=== PATIENT | female | born 1965 | race African-American/Black ===

== ENCOUNTER 2019-11-06 09:26 | Inpatient (IN) | payer MEDICARE, MEDICAID ==
[~2019-11-06] VITALS: Ht 167.6 cm; Wt 86.2 kg
[2019-11-06] MEDS ORDERED: METHYLPREDNISOLONE SOD SUCC 125 MG/2 ML VIAL IV STA (09:44)
[2019-11-06] MEDS ORDERED: IPRATROPIUM BROMIDE (0.02%) 0.5MG/2.5ML NEB HHN STA (09:44)
[2019-11-06] MEDS ORDERED: ALBUTEROL (0.083%) 2.5MG/3ML NEB HHN STA (09:44)
[2019-11-06] MEDS ORDERED: IPRATROPIUM/ALBUTEROL 0.5-3(2.5)MG/3ML NEB ONE (09:47)
[2019-11-06] MEDS ORDERED: SODIUM CHLORIDE 0.9% 1000ML BAG (SEPSIS BOLUS) IV ONE (10:30)
[2019-11-06] MEDS ORDERED: LEVOFLOXACIN 500MG PREMIX 100 ML IV ONE (10:30)
[2019-11-06] MEDS ORDERED: PIPERACILLIN/TAZ 3.375G PREMIX 50 ML IV ONE (10:30)
[2019-11-06] MEDS ORDERED: VECURONIUM BROMIDE 10 MG/VIAL IV ONE ×2 (10:31→11:45)
[2019-11-06] MEDS ORDERED: ETOMIDATE 2MG/ML 10ML VIAL IV ONE ×2 (10:31→11:00)
[2019-11-06 10:46] LABS: CHLORIDE 97 mEq/L (98-107)
[2019-11-06 10:48] LABS: INR 1.1; PROTHROMBIN TIME 12.1 sec (9.6-11.0)
[2019-11-06] MEDS ORDERED: LORAZEPAM 2MG/ML CPJ ONE (10:55)
[2019-11-06] MEDS ORDERED: LORAZEPAM 2MG/ML CPJ IV ONE (11:00)
[2019-11-06] MEDS ORDERED: MIDAZOLAM HCL 50 MG in DEXTROSE 5% WATER 40 ML IV ONE (11:00)
[2019-11-06 11:20] LABS: CLARITY URINE TURBID (CLEAR); COLOR URINE DK YELLOW (YELLOW); KETONES URINE NEGATIVE (NEGATIVE); LEUKOCYTE ESTERASE URINE 3+ (NEGATIVE); NITRITE URINE NEGATIVE (NEGATIVE); OCCULT BLOOD URINE NEGATIVE (NEGATIVE); PH URINE 8.5 (4.5-8.0); PROTEIN URINE 2+ (NEGATIVE); SPECIFIC GRAVITY URINE 1.017 (1.005-1.030)
[2019-11-06 11:29] LABS: BG CARBOXYHEMOGLOBIN 0.8 % (0.5-1.5); BG DEOXYHEMOGLOBIN 0.3 % (0.0-5.0); BG FRACTION INSPIRED OXYGEN 100; BG HCO3 ACT 21.8 mmol/L (22.0-26.0); BG METHEMOGLOBIN 0.5 % (0.0-1.5); BG OXYGEN SATURATION 99.7 % (92.0-98.5); BG OXYHEMOGLOBIN 98.4 % (94.0-97.0); BG PCO2 28.3 mmHg (35.0-45.0); BG PH 7.504 (7.350-7.450); BG SAMPLE SITE RIGHT BRACHIAL; BG TIDAL VOLUME(mL) 500 mL; BG TOTAL HEMOGLOBIN 7.2 g/dL (12.0-18.0); BG VENT MODE VENT - A/C; BG VENT RATE 12 set
[2019-11-06 12:38] LABS: BASOPHILS % 1.2 % (0.0-2.0); EOSINOPHILS % 0.8 % (0.0-5.0); HEMATOCRIT. 24.6 % (36.0-48.0); HEMOGLOBIN. 7.5 g/dL (12.0-16.0); LYMPHOCYTES % 11.5 % (20.0-50.0); MEAN CORPUSCULAR HEMOGLOBIN 27.7 pg (28.0-32.0); MEAN CORPUSCULAR VOLUME 90.2 fL (81.0-99.0); MEAN PLATELET VOLUME 8.2 fl (7.4-10.4); MONOCYTES % 10.2 % (2.0-8.0); NEUTROPHILS % 76.3 % (40.0-76.0); PLATELET 83 x1000/uL (130-400); RED BLOOD CELL COUNT 2.73 mill/uL (4.2-5.4); RED CELL DISTRIBUTION WIDTH 19.4 % (11.6-14.6)
[2019-11-06] MEDS ORDERED: PIPERACILLIN/TAZ 3.375G PREMIX 50 ML IV SCH (15:45)
[2019-11-06] MEDS ORDERED: ACETAMINOPHEN 325MG TABLET PO PRN (15:45)
[2019-11-06] MEDS ORDERED: ONDANSETRON HCL 4MG/2ML INJ IV PRN (15:45)
[2019-11-06 16:13] LABS: BG BASE EXCESS 0.1 mmol/L (-2.0-2.0); BG CARBOXYHEMOGLOBIN 1.1 % (0.5-1.5); BG DEOXYHEMOGLOBIN 0.4 % (0.0-5.0); BG FRACTION INSPIRED OXYGEN 40; BG HCO3 ACT 22.5 mmol/L (22.0-26.0); BG METHEMOGLOBIN 0.5 % (0.0-1.5); BG OXYGEN SATURATION 99.6 % (92.0-98.5); BG PCO2 27.7 mmHg (35.0-45.0); BG PH 7.527 (7.350-7.450); BG PO2 164.4 mmHg (75.0-100.0); BG SAMPLE SITE RIGHT RADIAL; BG TIDAL VOLUME(mL) 500 mL; BG VENT MODE VENT - A/C; BG VENT RATE 12 set
[2019-11-06] MEDS: PANTOPRAZOLE SODIUM 40 MG/VIAL IV SCH (16:50)
[2019-11-06] MEDS: SODIUM CHLORIDE 0.9% 1,000 ML IV SCH (16:51)
[2019-11-06] MEDS ORDERED: MIDAZOLAM HCL 50 MG in DEXTROSE 5% WATER 40 ML IV PRN (21:15)
[2019-11-06] MEDS ORDERED: METHYLPREDNISOLONE SOD SUCC 125 MG/2 ML VIAL IV NR (22:15)
[2019-11-06] MEDS ORDERED: METHYLPREDNISOLONE SOD SUCC 40 MG/ML VIAL IV NR (22:15)
[2019-11-07] VITALS (48 sets, daily range): BP systolic 109–148; BP diastolic 56–80
[2019-11-07] MEDS ORDERED: VANCOMYCIN 1500MG in DEXTROSE 5% WATER 250ML IV SCH (01:00)
[2019-11-07 01:57] LABS: HEMATOCRIT. 21.8 % (36.0-48.0); MEAN CORPUSCULAR HEMOGLOBIN 27.6 pg (28.0-32.0); MEAN CORPUSCULAR VOLUME 87.2 fL (81.0-99.0); RED CELL DISTRIBUTION WIDTH 19.5 % (11.6-14.6)
[2019-11-07 02:05] LABS: HEMOGLOBIN. 6.9 g/dL (12.0-16.0)
[2019-11-07 02:32] LABS: CHLORIDE 101 mEq/L (98-107)
[2019-11-07] MEDS: SODIUM CHLORIDE 0.9% 1,000 ML IV SCH ×3 (02:48→15:24)
[2019-11-07 03:56] LABS: NUCLEATED RED BLOOD CELLS 1 /100 WBC
[2019-11-07 03:57] LABS: PLATELET ESTIMATE DECREASED
[2019-11-07 04:01] LABS: PLATELET 86 x1000/uL (130-400)
[2019-11-07 04:02] LABS: MEAN PLATELET VOLUME 8.9 fl (7.4-10.4)
[2019-11-07 06:47] LABS: HEMATOCRIT. 25.3 % (36.0-48.0); HEMOGLOBIN. 8.4 g/dL (12.0-16.0); MEAN CORPUSCULAR HEMOGLOBIN 28.7 pg (28.0-32.0); MEAN CORPUSCULAR VOLUME 86.9 fL (81.0-99.0); MEAN PLATELET VOLUME 8.3 fl (7.4-10.4); PLATELET 81 x1000/uL (130-400); RED BLOOD CELL COUNT 2.91 mill/uL (4.2-5.4); RED CELL DISTRIBUTION WIDTH 18.7 % (11.6-14.6)
[2019-11-07] MEDS: METHYLPREDNISOLONE SOD SUCC 40 MG/ML VIAL IV SCH ×3 (06:55→23:01)
[2019-11-07 08:00] LABS: BG BASE EXCESS -0.1 mmol/L (-2.0-2.0); BG DEOXYHEMOGLOBIN 0.6 % (0.0-5.0); BG FRACTION INSPIRED OXYGEN 40; BG HCO3 ACT 21.1 mmol/L (22.0-26.0); BG METHEMOGLOBIN 0.4 % (0.0-1.5); BG OXYGEN SATURATION 99.4 % (92.0-98.5); BG PCO2 23.2 mmHg (35.0-45.0); BG PH 7.576 (7.350-7.450); BG PO2 157.7 mmHg (75.0-100.0); BG SAMPLE SITE RIGHT BRACHIAL; BG TIDAL VOLUME(mL) 500 mL; BG TOTAL HEMOGLOBIN 8.9 g/dL (12.0-18.0); BG VENT MODE VENT - A/C; BG VENT RATE 12 set
[2019-11-07 08:09] LABS: PLATELET ESTIMATE SLIGHTLY DECREASED
[2019-11-07] MEDS: IPRATROPIUM/ALBUTEROL 0.5-3(2.5)MG/3ML NEB HHN SCH ×4 (08:43→20:28)
[2019-11-07] MEDS ORDERED: HEPARIN 100 UNITS/1 ML VIAL IVF PRN (10:45)
[2019-11-07] MEDS ORDERED: PIPERACILLIN/TAZOBACTAM 2.25 G in DEXTROSE 5% WATER 50 ML IV SCH ×3 (11:00)
[2019-11-07] MEDS ORDERED: ATOR-2 MT (11:17)
[2019-11-07] MEDS ORDERED: TRAM50TA3 MT (11:19)
[2019-11-07] MEDS ORDERED: TRAM50TA MT (11:19)
[2019-11-07] MEDS ORDERED: PHEN30TA42 PO (11:22)
[2019-11-07] MEDS ORDERED: BACL-141 PO (11:25)
[2019-11-07] MEDS ORDERED: AMAN100C16 GT (11:29)
[2019-11-07] MEDS ORDERED: SENN-178 MT (11:31)
[2019-11-07] MEDS ORDERED: HYOS-16 SL (11:34)
[2019-11-07] MEDS ORDERED: LEVE10006 MT (11:35)
[2019-11-07] MEDS ORDERED: AMLO5TAB88 MT (11:52)
[2019-11-07] MEDS ORDERED: METO-385 PO (11:54)
[2019-11-07] MEDS ORDERED: ONDA4TAB11 PO (11:57)
[2019-11-07] MEDS ORDERED: LORA2DIS6 SQ (12:20)
[2019-11-07] MEDS ORDERED: HYDR12.54 MT (12:22)
[2019-11-07] MEDS ORDERED: SERT100T (12:24)
[2019-11-07] MEDS ORDERED: VITA-261 MT (12:25)
[2019-11-07] MEDS: PANTOPRAZOLE SODIUM 40 MG/VIAL IV SCH (12:41)
[2019-11-07] MEDS ORDERED: DEXT 5%/0.9% NACL 1,000 ML IV SCH (12:45)
[2019-11-07] MEDS ORDERED: LIDOCAINE HCL 1% 20ML VIAL (Pyxis) INJ ONE (13:21)
[2019-11-07 14:10] LABS: BG BASE EXCESS -4.5 mmol/L (-2.0-2.0); BG CARBOXYHEMOGLOBIN 0.8 % (0.5-1.5); BG DEOXYHEMOGLOBIN 0.9 % (0.0-5.0); BG FRACTION INSPIRED OXYGEN 40; BG HCO3 ACT 17.9 mmol/L (22.0-26.0); BG METHEMOGLOBIN 0.4 % (0.0-1.5); BG OXYGEN SATURATION 99.1 % (92.0-98.5); BG OXYHEMOGLOBIN 97.9 % (94.0-97.0); BG PO2 149.7 mmHg (75.0-100.0); BG PRESSURE SUPPORT 10; BG SAMPLE SITE RIGHT RADIAL; BG TIDAL VOLUME(mL) 500 mL; BG TOTAL HEMOGLOBIN 8.8 g/dL (12.0-18.0); BG VENT MODE VENT - SIMV; BG VENT RATE 12 set
[2019-11-07] MEDS: CEFEPIME 2,000 MG in DEXT 5% WATER 100 ML IV SCH (17:27)
[2019-11-07] MEDS: MIDAZOLAM HCL 50 MG in DEXTROSE 5% WATER 40 ML IV PRN (18:31)
[2019-11-07] MEDS ORDERED: LEVETIRACETAM 500MG/5ML CUP PO SCH (21:00)
[2019-11-07] MEDS: VANCOMYCIN 1 G PREMIX 200 ML IV SCH (21:23)
[2019-11-07] MEDS: LEVETIRACETAM 1,500 MG in SODIUM CHLORIDE 0.9% 100 ML IV SCH (23:01)
[2019-11-07 23:30] LABS: T4 FREE 0.8 ng/dL (0.76-1.46)
[2019-11-08] VITALS (96 sets, daily range): BP systolic 72–136; BP diastolic 36–92
[2019-11-08] MEDS: IPRATROPIUM/ALBUTEROL 0.5-3(2.5)MG/3ML NEB HHN SCH ×7 (00:25→20:40)
[2019-11-08] MEDS ORDERED: VANCOMYCIN 1250MG in DEXTROSE 5% WATER 250ML IV SCH (01:00)
[2019-11-08] MEDS: MIDAZOLAM HCL 50 MG in DEXTROSE 5% WATER 40 ML IV PRN ×3 (05:16→19:54)
[2019-11-08] MEDS: SODIUM CHLORIDE 0.9% 1,000 ML IV SCH ×3 (05:17→13:04)
[2019-11-08] MEDS: METHYLPREDNISOLONE SOD SUCC 40 MG/ML VIAL IV SCH ×3 (05:18→21:41)
[2019-11-08 05:47] LABS: HEMATOCRIT. 25.3 % (36.0-48.0); HEMOGLOBIN. 8.4 g/dL (12.0-16.0); MEAN CORPUSCULAR HEMOGLOBIN 28.9 pg (28.0-32.0); MEAN CORPUSCULAR VOLUME 87.3 fL (81.0-99.0); MEAN PLATELET VOLUME 7.3 fl (7.4-10.4); PLATELET 52 x1000/uL (130-400); RED CELL DISTRIBUTION WIDTH 19.3 % (11.6-14.6)
[2019-11-08 06:03] LABS: PHOSPHORUS 4.3 mg/dL (2.5-4.9)
[2019-11-08 07:33] LABS: BG BASE EXCESS -3.5 mmol/L (-2.0-2.0); BG CARBOXYHEMOGLOBIN 1.1 % (0.5-1.5); BG DEOXYHEMOGLOBIN 0.8 % (0.0-5.0); BG FRACTION INSPIRED OXYGEN 10; BG HCO3 ACT 20.2 mmol/L (22.0-26.0); BG METHEMOGLOBIN 0.3 % (0.0-1.5); BG OXYGEN SATURATION 99.2 % (92.0-98.5); BG OXYHEMOGLOBIN 97.8 % (94.0-97.0); BG PCO2 30.7 mmHg (35.0-45.0); BG PH 7.435 (7.350-7.450); BG PO2 157.8 mmHg (75.0-100.0); BG PRESSURE SUPPORT 10; BG SAMPLE SITE RIGHT RADIAL; BG TIDAL VOLUME(mL) 500 mL; BG TOTAL HEMOGLOBIN 8.8 g/dL (12.0-18.0); BG VENT MODE VENT - SIMV; BG VENT RATE 12 set
[2019-11-08] MEDS: PANTOPRAZOLE SODIUM 40 MG/VIAL IV SCH (09:16)
[2019-11-08] MEDS: LEVETIRACETAM 1,500 MG in SODIUM CHLORIDE 0.9% 100 ML IV SCH ×2 (09:16→20:44)
[2019-11-08] MEDS ORDERED: POTASSIUM CHLORIDE INJ 40 MEQ in DEXT 5% WATER 250 ML IV ONE (10:30)
[2019-11-08 16:54] LABS: PLATELET ESTIMATE DECREASED
[2019-11-08] MEDS: CEFEPIME 2,000 MG in DEXT 5% WATER 100 ML IV SCH (18:01)
[2019-11-08] MEDS: VANCOMYCIN 1 G PREMIX 200 ML IV SCH (21:41)
[2019-11-09] VITALS (47 sets, daily range): BP systolic 46–135; BP diastolic 18–90
[2019-11-09] MEDS: SODIUM CHLORIDE 0.9% 1,000 ML IV SCH ×2 (00:43→09:02)
[2019-11-09] MEDS ORDERED: NOREPINEPHRINE 8 MG in DEXT 5% WATER 242 ML IV PRN (04:00)
[2019-11-09] MEDS: METHYLPREDNISOLONE SOD SUCC 40 MG/ML VIAL IV SCH (06:34)
[2019-11-09] MEDS: MIDAZOLAM HCL 50 MG in DEXTROSE 5% WATER 40 ML IV PRN (07:35)
[2019-11-09] MEDS: IPRATROPIUM/ALBUTEROL 0.5-3(2.5)MG/3ML NEB HHN SCH ×2 (08:34→11:25)
[2019-11-09 08:49] LABS: BG BASE EXCESS -14.5 mmol/L (-2.0-2.0); BG CARBOXYHEMOGLOBIN 0.9 % (0.5-1.5); BG DEOXYHEMOGLOBIN 0.8 % (0.0-5.0); BG FRACTION INSPIRED OXYGEN 40; BG HCO3 ACT 8.7 mmol/L (22.0-26.0); BG METHEMOGLOBIN 0.4 % (0.0-1.5); BG OXYGEN SATURATION 99.2 % (92.0-98.5); BG OXYHEMOGLOBIN 97.9 % (94.0-97.0); BG PCO2 15.7 mmHg (35.0-45.0); BG PH 7.361 (7.350-7.450); BG PO2 155.8 mmHg (75.0-100.0); BG SAMPLE SITE RIGHT RADIAL; BG TIDAL VOLUME(mL) 500 mL; BG TOTAL HEMOGLOBIN 10.5 g/dL (12.0-18.0); BG VENT MODE VENT - A/C; BG VENT RATE 12 set
[2019-11-09] MEDS: PANTOPRAZOLE SODIUM 40 MG/VIAL IV SCH (09:03)
[2019-11-09] MEDS: LEVETIRACETAM 1,500 MG in SODIUM CHLORIDE 0.9% 100 ML IV SCH (09:03)
[2019-11-09 10:38] LABS: HEMATOCRIT. 31.9 % (36.0-48.0); HEMOGLOBIN. 9.2 g/dL (12.0-16.0); MEAN CORPUSCULAR HEMOGLOBIN 27.4 pg (28.0-32.0); MEAN CORPUSCULAR VOLUME 95.3 fL (81.0-99.0); RED BLOOD CELL COUNT 3.35 mill/uL (4.2-5.4); RED CELL DISTRIBUTION WIDTH 21.1 % (11.6-14.6)
[2019-11-09 12:02] LABS: MEAN PLATELET VOLUME 8.6 fl (7.4-10.4); PLATELET 10 x1000/uL (130-400)
[2019-11-09 12:05] LABS: NUCLEATED RED BLOOD CELLS 14 /100 WBC; PLATELET ESTIMATE MARKEDLY DECREASED
[2019-11-09] MEDS ORDERED: DOPAMINE 800MG PREMIX (DOUBLE) 250 ML IV ONE (12:35)
[2019-11-09] MEDS ORDERED: PHENYLEPHRINE 20 MG in DEXT 5% WATER 248 ML IV PRN (12:45)
[2019-11-09] MEDS ORDERED: DOPAMINE 800MG PREMIX (DOUBLE) 250 ML IV PRN (12:45)
[2019-11-09] MEDS ORDERED: PHENYTOIN SODIUM 1,000 MG in SODIUM CHLORIDE 0.9% 100 ML IV NR (13:00)
[2019-11-09 13:04] LABS: BG BASE EXCESS -21.5 mmol/L (-2.0-2.0); BG CARBOXYHEMOGLOBIN 0.3 % (0.5-1.5); BG DEOXYHEMOGLOBIN 1.7 % (0.0-5.0); BG FRACTION INSPIRED OXYGEN 100; BG HCO3 ACT 6.1 mmol/L (22.0-26.0); BG METHEMOGLOBIN 0.5 % (0.0-1.5); BG OXYGEN SATURATION 98.3 % (92.0-98.5); BG OXYHEMOGLOBIN 97.5 % (94.0-97.0); BG PCO2 19.7 mmHg (35.0-45.0); BG PH 7.112 (7.350-7.450); BG PO2 164.4 mmHg (75.0-100.0); BG SAMPLE SITE RIGHT FEMORAL; BG TIDAL VOLUME(mL) 500 mL; BG TOTAL HEMOGLOBIN 9.1 g/dL (12.0-18.0); BG VENT MODE VENT - A/C; BG VENT RATE 24 set
[2019-11-09] MEDS ORDERED: LINEZOLID 600 MG PREMIX 300 ML IV SCH (14:00)
[2019-11-09] MEDS ORDERED: DEXT 5% WATER + KCL 20MEQ/L 1,000 ML IV SCH (14:00)
[2019-11-09] MEDS ORDERED: HYDROCORTISONE SOD SUCCINATE 100 MG/2 ML VIAL IV SCH (14:00)
[2019-11-09] MEDS ORDERED: MEROPENEM 1,000 MG in SODIUM CHLORIDE 0.9% 100 ML IV SCH (15:00)
[2019-11-09] MEDS ORDERED: DEXTROSE 5% IV SCH (15:30)
[2019-11-09] MEDS ORDERED: SODIUM BICARBONATE IV SCH (15:30)
[2019-11-09] MEDS ORDERED: WATER IV SCH (15:30)
[2019-11-11 17:33] LABS: VITAMIN B12 SERUM 947 pg/mL (211-911)
[2019-11-11 17:54] LABS: FOLIC ACID (FOLATE) SERUM > 20.00 ng/mL (>5.38)
== END 2019-11-09 14:24 | disposition expired | DRG 871 ==
LOC: EDBEDREQTM 09:40 → EDBEDREQSVC 09:40 → ER 10:06 → EDBD 11:19 → MICUNO 11:19 → EDBEDREQTM 11:22 → EDBEDREQ 11:22 → ENRESERV 11-07 07:34
PROVIDERS: ADMIT Internal Medicine; ATTEND Internal Medicine
PROC: 5A1945Z Respiratory Ventilation, 24-96 Consecutive Hours (ICD-10-PCS; principal; 2019-11-06)
PROC: 0BH17EZ Insertion of Endotracheal Airway into Trachea, Via Natural or Artificial Opening (ICD-10-PCS; 2019-11-06)
PROC: 30233N1 Transfusion of Nonautologous Red Blood Cells into Peripheral Vein, Percutaneous Approach (ICD-10-PCS; 2019-11-07)
PROC: 02HV33Z Insertion of Infusion Device into Superior Vena Cava, Percutaneous Approach (ICD-10-PCS; 2019-11-07)
PROC: B548ZZA Ultrasonography of Superior Vena Cava, Guidance (ICD-10-PCS; 2019-11-07)
PROC: 4A10X4Z Monitoring of Central Nervous Electrical Activity, External Approach (ICD-10-PCS; 2019-11-08)
PROC: 5A12012 Performance of Cardiac Output, Single, Manual (ICD-10-PCS; 2019-11-09)
DX: A41.9 Sepsis, unspecified organism (principal); I21.4 Non-ST elevation (NSTEMI) myocardial infarction; G92 Toxic encephalopathy; R65.21 Severe sepsis with septic shock; J96.01 Acute respiratory failure with hypoxia; J18.9 Pneumonia, unspecified organism; N39.0 Urinary tract infection, site not specified; N17.9 Acute kidney failure, unspecified; E46 Unspecified protein-calorie malnutrition; E87.3 Alkalosis; Z99.11 Dependence on respirator [ventilator] status; R13.10 Dysphagia, unspecified; D69.6 Thrombocytopenia, unspecified; I50.9 Heart failure, unspecified; I11.0 Hypertensive heart disease with heart failure; D64.9 Anemia, unspecified; R53.81 Other malaise; Z51.5 Encounter for palliative care; Z66 Do not resuscitate; G40.909 Epilepsy, unspecified, not intractable, without status epilepticus; R80.9 Proteinuria, unspecified; B96.4 Proteus (mirabilis) (morganii) as the cause of diseases classified elsewhere; I27.21 Secondary pulmonary arterial hypertension; I35.1 Nonrheumatic aortic (valve) insufficiency; I49.3 Ventricular premature depolarization; Z74.01 Bed confinement status; Z68.30 Body mass index [BMI] 30.0-30.9, adult; Z86.73 Personal history of transient ischemic attack (TIA), and cerebral infarction without residual deficits; Z93.1 Gastrostomy status; Z88.6 Allergy status to analgesic agent; Z82.49 Family history of ischemic heart disease and other diseases of the circulatory system; Z82.3 Family history of stroke; I25.2 Old myocardial infarction; Z79.899 Other long term (current) drug therapy; Z86.74 Personal history of sudden cardiac arrest; I46.9 Cardiac arrest, cause unspecified
CPT/HCPCS: 36415; 36600; 71045; 76937; 80048; 80053; 80202; 81003; 82140; 82375; 82533; 82607; 82746; 82805; 82962; 83036; 83605; 83735; 83880; 84100; 84145; 84439; 84443; 84481; 84484; 85025; 86850; 86900; 86920; 87070; 87077; 87186; 87804; 93005; 93306; 93970; 94002; 94003; 94640; 99291; C1725; C9113; J0692; J1165; J1265; J1953; J1956; J2020; J2060; J2185; J2250; J2543; J2920; J2930; J3370; J3480; J3490; J7030; J7050; J7060; J7070; P9016